=== PATIENT | male | born 1945 | race Caucasian/White ===

== ENCOUNTER 2022-11-10 22:55 | Inpatient (IN) | payer OTHER ==
[2022-11-11 01:56] VITALS: BMI 39.1
[2022-11-11 02:53] LABS: SARS-CoV-2 NAA Rapid Test Not Detected (NotDetected)
[2022-11-11] MEDS ORDERED: Ondansetron PF 4 MG/2 ML Vial IVP PRN (03:25)
[2022-11-11] MEDS ORDERED: Nitroglycerin 0.4 MG TAB (25 Tab Bottle) SL PRN (03:25)
[2022-11-11] MEDS ORDERED: Dextrose 50% Abboject 50 ML SYRINGE SLOW IVP PRN (03:54)
[2022-11-11] MEDS ORDERED: HumaLOG 300 UNITS/3 ML VIAL SC PRN (03:54)
[2022-11-11] MEDS ORDERED: Dextrose 5% in Water 1,000 ML IV PRN (03:54)
[2022-11-11 05:37] LABS: #Eosinphils 0.8 thou/uL (0.0-0.7); #Lymphocytes 2.2 thou/uL (1.20-3.40); #Monocytes 0.7 thou/uL (0.11-0.59); #Neutrophils 3.5 thou/uL (1.40-6.50); %Basophils 0.4 % (0.0-1.0); %Eosinophils 11.7 % (0.0-10.0); %Lymphocytes 30.2 % (21.0-51.0); %Monocytes 9.3 % (0.0-10.0); %Neutrophils 48.5 % (42.0-75.0); Hemoglobin 13.1 g/dL (14.0-18.0); Mean Corpuscular Volume 91.1 fl (78.0-98.0); Mean Platelet Volume 8.6 fL (7.4-10.4); Platelet Count 151 10x3/uL (130-400); RBC Distribution Width 13.2 % (11.5-14.5); Red Blood Cell (RBC) Count 4.37 mill/uL (4.70-6.10); White Blood Cell (WBC) Count 7.2 10x3/uL (4.8-10.8)
[2022-11-11 05:47] LABS: INR-International Normal Ratio 2.2; PTT 39.6 sec (22.9-36.1); Prothrombin Time 25.7 sec (12.0-14.7)
[2022-11-11 06:01] LABS: Anion Gap 10 mmol/L (10-20); BUN (Urea Nitrogen) 14 mg/dL (8.4-25.7); Calc. Creatinine Clearance 159 mL/min (70-130); Calcium 8.8 mg/dL (7.8-10.44); Carbon Dioxide 25 mmol/L (23-31); Cardiac Risk 3.5 (Less than 4.5); Chloride 109 mmol/L (98-107); Cholesterol 133 mg/dl (< 200 Desired); Estimated GFR 94; Glucose 145 mg/dL (83-110); HDL Cholesterol 38 mg/dL (>60 Neg Risk); LDL Cholesterol, Calculated 67 mg/dL; Sodium 140 mmol/L (136-145); Triglycerides 141 mg/dL (Less than 150)
[2022-11-11 06:04] LABS: Troponin I Less than 0.010 ng/mL (< 0.028)
[2022-11-11] MEDS: Carvedilol 25 MG TAB PO SCH ×2 (08:50→17:55)
[2022-11-11] MEDS: Lisinopril 20 MG TAB PO SCH ×2 (11:55→20:43)
[2022-11-11] MEDS: hydrALAZINE 25 MG TAB PO SCH ×3 (11:56→20:43)
[2022-11-11] MEDS: HumaLOG 300 UNITS/3 ML VIAL SC PRN ×2 (12:00→17:54)
[2022-11-11] MEDS: Benzonatate 100 MG CAP PO PRN ×2 (17:55→20:43)
[2022-11-11] MEDS: Atorvastatin Calcium 40 MG TAB PO SCH (20:43)
[2022-11-11] MEDS: Gabapentin 300 MG CAP PO SCH (20:44)
[2022-11-11] MEDS: Acetaminophen 325 MG TAB PO PRN (20:44)
[2022-11-12 05:37] LABS: #Eosinphils 0.7 thou/uL (0.0-0.7); #Lymphocytes 2.8 thou/uL (1.20-3.40); #Monocytes 0.7 thou/uL (0.11-0.59); %Basophils 0.5 % (0.0-1.0); %Eosinophils 10.1 % (0.0-10.0); %Lymphocytes 37.8 % (21.0-51.0); %Monocytes 9.7 % (0.0-10.0); %Neutrophils 41.9 % (42.0-75.0); Hemoglobin 13.5 g/dL (14.0-18.0); Mean Corpuscular Hemoglobin 29.1 pg (27.0-31.0); Mean Corpuscular Volume 90.8 fl (78.0-98.0); Mean Platelet Volume 8.5 fL (7.4-10.4); Platelet Count 158 10x3/uL (130-400); RBC Distribution Width 13.2 % (11.5-14.5); Red Blood Cell (RBC) Count 4.64 mill/uL (4.70-6.10); White Blood Cell (WBC) Count 7.3 10x3/uL (4.8-10.8)
[2022-11-12 05:55] LABS: Anion Gap 11 mmol/L (10-20); BUN (Urea Nitrogen) 13 mg/dL (8.4-25.7); Calc. Creatinine Clearance 144 mL/min (70-130); Calcium 9.1 mg/dL (7.8-10.44); Carbon Dioxide 26 mmol/L (23-31); Chloride 109 mmol/L (98-107); Estimated GFR 91; Glucose 133 mg/dL (83-110); Potassium 4.3 mmol/L (3.5-5.1); Sodium 142 mmol/L (136-145)
[2022-11-12] MEDS: NIFEdipine XL 30 MG TAB PO SCH (09:33)
[2022-11-12] MEDS: hydrALAZINE 25 MG TAB PO SCH ×3 (09:33→20:33)
[2022-11-12] MEDS: Carvedilol 25 MG TAB PO SCH ×2 (09:33→16:11)
[2022-11-12] MEDS: Lisinopril 20 MG TAB PO SCH ×2 (09:34→20:33)
[2022-11-12 09:54] LABS: INR-International Normal Ratio 1.5; PTT 33.4 sec (22.9-36.1); Prothrombin Time 18.2 sec (12.0-14.7)
[2022-11-12] MEDS ORDERED: Communication Order-Pharmacy FS SCH (12:30)
[2022-11-12] MEDS: Ipratropium/Albuterol 3 ML NEB EZPAP PRN (15:41)
[2022-11-12] MEDS: Benzonatate 100 MG CAP PO PRN ×2 (16:12→23:48)
[2022-11-12] MEDS: Acetaminophen 325 MG TAB PO PRN ×2 (16:15→20:32)
[2022-11-12] MEDS: Ipratropium/Albuterol 3 ML NEB NEB SCH (18:54)
[2022-11-12] MEDS: Gabapentin 300 MG CAP PO SCH (20:32)
[2022-11-12] MEDS: Atorvastatin Calcium 40 MG TAB PO SCH (20:32)
[2022-11-13] MEDS: Ipratropium/Albuterol 3 ML NEB EZPAP PRN (00:04)
[2022-11-13 05:24] LABS: #Eosinphils 0.9 thou/uL (0.0-0.7); #Monocytes 0.7 thou/uL (0.11-0.59); #Neutrophils 3.8 thou/uL (1.40-6.50); %Basophils 0.6 % (0.0-1.0); %Eosinophils 10.4 % (0.0-10.0); %Lymphocytes 35.4 % (21.0-51.0); %Monocytes 8.7 % (0.0-10.0); Hemoglobin 13.5 g/dL (14.0-18.0); Mean Corpuscular HGB CONC 33.4 g/dL (32.0-36.0); Mean Corpuscular Volume 89.9 fl (78.0-98.0); Mean Platelet Volume 9.1 fL (7.4-10.4); Platelet Count 163 10x3/uL (130-400); RBC Distribution Width 13.2 % (11.5-14.5); Red Blood Cell (RBC) Count 4.49 mill/uL (4.70-6.10); White Blood Cell (WBC) Count 8.5 10x3/uL (4.8-10.8)
[2022-11-13 05:47] LABS: Anion Gap 14 mmol/L (10-20); BUN (Urea Nitrogen) 17 mg/dL (8.4-25.7); Calc. Creatinine Clearance 144 mL/min (70-130); Calcium 8.8 mg/dL (7.8-10.44); Carbon Dioxide 22 mmol/L (23-31); Chloride 108 mmol/L (98-107); Estimated GFR 91; Glucose 133 mg/dL (83-110); Potassium 4.2 mmol/L (3.5-5.1); Sodium 140 mmol/L (136-145)
[2022-11-13] MEDS: Lisinopril 20 MG TAB PO SCH (06:04)
[2022-11-13] MEDS: hydrALAZINE 25 MG TAB PO SCH ×2 (06:05→15:11)
[2022-11-13] MEDS: NIFEdipine XL 30 MG TAB PO SCH (06:05)
[2022-11-13] MEDS: Carvedilol 25 MG TAB PO SCH (06:05)
[2022-11-13] MEDS ORDERED: Nitroglycerin 100MG/250ML BOT 0 ML ONE (06:31)
[2022-11-13] MEDS ORDERED: Heparin 10,000 UNITS/ 10 ML VIAL ONE (06:31)
[2022-11-13] MEDS ORDERED: Lidocaine 1% (PF) 30 ML VIAL ONE (06:31)
[2022-11-13] MEDS ORDERED: Midazolam HCl 2 mg/2 ml Vial ONE (06:32)
[2022-11-13] MEDS ORDERED: FENTANYL 50 MCG/ML 1 ML VIAL ONE (06:33)
[2022-11-13] MEDS: Ipratropium/Albuterol 3 ML NEB NEB SCH ×2 (06:34→10:24)
[2022-11-13] MEDS ORDERED: Sodium Chloride 0.9% 200 ML IV PRN (08:47)
[2022-11-13] MEDS ORDERED: Nitroglycerin 0.4 MG TAB (25 Tab Bottle) SL PRN (08:47)
[2022-11-13] MEDS ORDERED: Acetaminophen/Codeine 30-300mg Tablet PO PRN ×2 (08:47)
[2022-11-13 12:05] LABS: INR-International Normal Ratio 1.2; Prothrombin Time 15.7 sec (12.0-14.7)
[2022-11-13 12:06] LABS: PTT 31.4 sec (22.9-36.1)
[2022-11-13 12:10] VITALS: BP 127/60; TEMP 97.4
[2022-11-14] MEDS ORDERED: Aspirin 81 mg Enteric Coated Tablet PO SCH (09:00)
== END 2022-11-13 15:59 | disposition home or self-care (01) | DRG 287 ==
LOC: 2SW 22:55 → OBSVTOIN 11-13 12:29
PROVIDERS: ADMIT Internal Medicine; ATTEND Internal Medicine
PROC: 4A023N7 Measurement of Cardiac Sampling and Pressure, Left Heart, Percutaneous Approach (ICD-10-PCS; principal; 2022-11-13)
PROC: B2111ZZ Fluoroscopy of Multiple Coronary Arteries using Low Osmolar Contrast (ICD-10-PCS; 2022-11-13)
PROC: B2151ZZ Fluoroscopy of Left Heart using Low Osmolar Contrast (ICD-10-PCS; 2022-11-13)
DX: I25.10 Atherosclerotic heart disease of native coronary artery without angina pectoris (principal); I48.20 Chronic atrial fibrillation, unspecified; I10 Essential (primary) hypertension; E78.5 Hyperlipidemia, unspecified; E11.9 Type 2 diabetes mellitus without complications; G89.29 Other chronic pain; I45.10 Unspecified right bundle-branch block; I44.0 Atrioventricular block, first degree; Z96.652 Presence of left artificial knee joint; Z96.641 Presence of right artificial hip joint; Z96.612 Presence of left artificial shoulder joint; E66.01 Morbid (severe) obesity due to excess calories; Z20.822 Contact with and (suspected) exposure to COVID-19; R05.3 Chronic cough; Z79.01 Long term (current) use of anticoagulants; Z79.899 Other long term (current) drug therapy; Z79.84 Long term (current) use of oral hypoglycemic drugs; Z98.890 Other specified postprocedural states; Z90.49 Acquired absence of other specified parts of digestive tract; Z87.891 Personal history of nicotine dependence; Z68.39 Body mass index [BMI] 39.0-39.9, adult
CPT/HCPCS: 36415; 36416; 80048; 80061; 84484; 85025; 85610; 85730; 87804; 93306; 93458; 94640; 94760; 99152; C1769; G0378; J1644; J1815; J2001; J2250; J3010; J7620; U0002